=== PATIENT | female | born 1980 | race Caucasian/White ===

== ENCOUNTER → 2019-11-14 | Emergency (ER) | payer OTHER ==
[~2019-11-14] VITALS: Ht 162.6 cm; Wt 63.5 kg
[~2019-11-14] MED LIST: CIPROFLOXACIN500 M1 PO; HYDROXYZINE HCL10 M2 PO; NOHOMEMEDICATIONS; NORCO 5-325 TA1 EACH PO; PROZAC20 M1 PO
[2019-11-14 06:14] VITALS: BP 116/71
== END ==
LOC: ER 06:13
DX: S50.11XA Contusion of right forearm, initial encounter (principal); F17.210 Nicotine dependence, cigarettes, uncomplicated; Z88.6 Allergy status to analgesic agent; Z88.8 Allergy status to other drugs, medicaments and biological substances; W00.0XXA Fall on same level due to ice and snow, initial encounter; Y92.89 Other specified places as the place of occurrence of the external cause; Y93.89 Activity, other specified; Y99.8 Other external cause status